=== PATIENT | male | born 1990 | race African-American/Black ===

== ENCOUNTER 2018-09-19 15:55 | Emergency (ER) | payer SELFPAY ==
[~2018-09-19] VITALS: Ht 182.9 cm; Wt 90.7 kg
--- NOTE | 2018-09-19 17:46 | Emergency Room Report ---
History of Present Illness General Chief Complaint: Lower Extremity Injury Source: Patient Present Illness HPI 28-year-old male presents to the emergency department complaining of localized pain and tenderness with some swelling to the lateral aspect of the right ankle 2 days. Patient reports acute onset after he tripped over a sandbox 2 days ago. Patient reports pain with weightbearing. Also reports some tenderness towards the top of the right foot as well. Patient denies previous injury to this extremity. Reports pain is exacerbated with attempts to walk and weight- bear. No relieving factors. Denies numbness tingling or loss of sensation or gross motor movements of the extremities, incontinence of bowel or bladder. Denies CP, Palpitations, LOC, AMS, dizziness, Changes in Vision, weakness or a sudden severe headache. Allergies: Coded Allergies: No Known Allergies (Unverified , 09/19/18) Patient History Past Medical History: see triage record Past Surgical History: none Pertinent Family History: none Reviewed Nursing Documentation: PMH: Agreed; PSxH: Agreed Nursing Documentation-PMH Past Medical History: No Stated History Review of Systems All Other Systems: negative except mentioned in HPI Physical Exam Vital Signs Date Time Temp Pulse Resp B/P (MAP) Pulse Ox O2 Delivery O2 Flow Rate FiO2 09/19/18 16:08 98.6 90 14 124/77 98 Room Air Sp02 EP Interpretation: reviewed, normal General Appearance: no apparent distress, alert, GCS 15, non-toxic Head: normocephalic, atraumatic Eyes: bilateral eye normal inspection, bilateral eye PERRL ENT: hearing grossly normal, normal voice Neck: full range of motion Respiratory: lungs clear, normal breath sounds, speaking full sentences Cardiovascular #1: regular rate, rhythm Cardiovascular #2: 0 carotid (R), 0 carotid (L), 0 radial (R), 0 radial (L), 0 femoral (R), 0 femoral (L), 0 dorsalis pedis (R), 0 dorsalis pedis (L) Musculoskeletal: back normal, normal range of motion - with pain, swelling - lateral right ankle, tender - lateral right ankle Neurologic: alert, oriented x3, responsive, motor strength/tone normal, sensory intact, speech normal, grossly normal Psychiatric: judgement/insight normal Skin: no rash, warm/dry, well hydrated, other - bruising to the lateral right ankle. Lymphatic: no adenopathy Medical Decision Making PA Attestation Dr. Alexander is my supervising Physician whom patient management has been discussed with. Diagnostic Impression: Primary Impression: Moderate left ankle sprain Qualified Codes: S93.402A - Sprain of unspecified ligament of left ankle, initial encounter Additional Impression: Possible avulsion fracture ER Course 28-year-old male presents to the emergency department complaining of localized pain and tenderness with some swelling to the lateral aspect of the right ankle 2 days. Patient reports acute onset after he tripped over a sandbox 2 days ago. Patient reports pain with weightbearing. Also reports some tenderness towards the top of the right foot as well. Patient denies previous injury to this extremity. Reports pain is exacerbated with attempts to walk and weight- bear. No relieving factors. Denies numbness tingling or loss of sensation or gross motor movements of the extremities, incontinence of bowel or bladder. Denies CP, Palpitations, LOC, AMS, dizziness, Changes in Vision, weakness or a sudden severe headache. Ddx considered but are not limited to Fracture, dislocation, contusion, Sprain/ Strain/Spasm, Epidural abscess, Neoplastic mets. Vital signs: are WNL, pt. is afebrile H&PE are most consistent with musculoskeletal injury will perform imaging to r/ o fractures/dislocations. ORDERS: - X-ray Right ankle 3 views - negative for fx, Dislocation, or significant soft tissue injury, per preliminary read in ED, and signed by JEANINE Lara , my supervising physician has reviewed, and agrees with my interpretation. ED INTERVENTIONS: - [place] PO - short leg posterior applied to the right ankle by geotechnical field technician. Pt. remains neurovascularly intact. -Patient is provided with crutches and instructed on their use d/w pt. conservative treatment for moderate sprain, suspect possible avulsion fx and will contact if radiology does determine fx. Pt to follow up with a primary care provider. pt given a list of primary care clinics for follow up. d/ w pt. to return to the ED with worsening or new symptoms. DISCHARGE: At this time pt. is stable for d/c to home. Will provide printed patient care instructions, and any necessary prescriptions. Care plan and follow up instructions have been discussed with the patient prior to discharge. Other X-Ray Diagnostic Results Other X-Ray Diagnostic Results : X-Ray ordered: Right ankle # of Views/Limited Vs Complete: 3 View Indication: Pain EP Interpretation: Yes JEANINE Xray: Interpretation reviewed, by supervising MD, and agrees with findings. Interpretation: no dislocation, other - possible avulsion fx, ST swelling noted. Impression: Other - possible avulsion fx, ST swelling noted. Electronically Signed by: Sandrine Lara PA-C Last Vital Signs Date Time Temp Pulse Resp B/P (MAP) Pulse Ox O2 Delivery O2 Flow Rate FiO2 09/19/18 16:08 98.6 90 14 124/77 98 Room Air Disposition: HOME, SELF-CARE Condition: Stable Scripts Ibuprofen* (MOTRIN*) 600 Mg Tablet 600 MG ORAL THREE TIMES A DAY, #30 TAB 0 Refills Prov: Sandrine Lara 09/19/18 Referrals: NOT CHOSEN IPA/MD,REFERRING (PCP) Departure Forms: Return to Work Return to Work Date: Sep 23, 2018 Work Restrictions: None Return to Full Activity: Sep 23, 2018 Patient Instructions: Ankle Sprain Additional Instructions: Take medications as directed. Follow up with an HISTORY CARD CLERK in 3-5 days, even if your symptoms have resolved. If symptoms persist MRI may be required at the discretion of your PCP or Ortho Specialist. --Please review list of primary care clinics, if you do not already have a primary care provider who can give you an Orthopedic Referral. Return sooner to ED if new symptoms occur, or current symptoms become worse. - Please note that this Emergency Department Report was dictated using [employer] technology software, occasionally this can lead to erroneous entry secondary to interpretation by the dictation equipment. Sandrine Lara Sep 19, 2018 17:46
[2018-09-19] MEDS: Tylenol #3 tab (300mg/30mg) ORAL ONE (17:50)
[2018-09-19] MEDS ORDERED: IBUPROFEN600 MG ORAL (17:59)
[2018-09-19 18:30] VITALS: BP_SYST 119; BP_SYST 124; BP_DIAS 72; BP_DIAS 77
--- NOTE | 2018-09-20 10:34 | Diagnostic Imaging Report ---
Indication: Ankle pain Technique: 3 views of the left ankle Comparison: none Findings: No acute fractures. No dislocations. The joint spaces are preserved. Impression: Negative
== END 2018-09-19 18:30 | disposition home or self-care (01) ==
LOC: EMR 16:54
DX: S93.402A Sprain of unspecified ligament of left ankle, initial encounter (principal); W01.0XXA Fall on same level from slipping, tripping and stumbling without subsequent striking against object, initial encounter; Y92.89 Other specified places as the place of occurrence of the external cause
CPT/HCPCS: 29515; 99284